=== PATIENT | female | born 2000 | race Caucasian/White ===

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

== ENCOUNTER → 2019-03-27 | Outpatient (CLI) | payer BC | LOC: LAB 13:38 | DX: J30.89 Other allergic rhinitis (principal); L50.8 Other urticaria; Z20.2 Contact with and (suspected) exposure to infections with a predominantly sexual mode of transmission; Z91.14 Patient's other noncompliance with medication regimen ==

== ENCOUNTER 2019-09-06 11:41 | Emergency (ER) | payer OTHER, BC ==
[~2019-09-06] VITALS: Ht 154.9 cm; Wt 72.6 kg
[2019-09-06 12:38] LABS: BASO # 0.1 (0.02-0.10); EOS # 0.4 (0.04-0.40); EOS % 5.5 % (0.1-4.0); HEMATOCRIT 42.8 % (35.0-45.0); HEMOGLOBIN 14.1 g/dL (12.0-15.0); LYMPH# 1.8 (1.20-3.40); MEAN CELL VOLUME 90 fl (78-95); MEAN CORPUSCULAR HEMOGLOBIN 30 pg (26-32); MEAN CORPUSCULAR HGB CONC 33 g/dL (33-37); MEAN PLATELET VOLUME 9.8 fl (7.4-10.4); MONO # 0.8 (0.10-0.60); NEU # 4.7 (1.40-6.50); PLATELET COUNT 332 K/mm3 (130-400); RED BLOOD COUNT 4.78 M/mm3 (4.10-5.30); RED CELL DISTRIBUTION WIDTH 12.5 % (11.5-14.5); WHITE BLOOD COUNT 7.8 K/mm3 (4.8-10.8)
[2019-09-06 12:47] LABS: ALBUMIN 4.3 g/dL (3.5-5.0); POTASSIUM 3.4 mmol/L (3.5-5.1)
[2019-09-06 12:49] LABS: CALCIUM 9.5 mg/dL (8.3-10.5)
[2019-09-06 12:52] LABS: TOTAL BILIRUBIN 0.5 mg/dL (0.2-1.2)
[2019-09-06] MEDS ORDERED: TRAMADOL 50 MG TAB PO (13:58)
[2019-09-06 14:10] VITALS: BP 122/76
[2019-09-06 15:25] LABS: URINE APPEARANCE CLEAR; URINE BILIRUBIN NEGATIVE (NEGATIVE); URINE BLOOD 250 ery/uL (NEGATIVE); URINE COLOR YELLOW; URINE GLUCOSE NEGATIVE (NEGATIVE); URINE KETONE NEGATIVE (NEGATIVE); URINE LEUKOCYTE ESTERASE NEGATIVE (NEGATIVE); URINE NITRATE NEGATIVE (NEGATIVE); URINE PROTEIN(semi-quant) 1+ mg/dL (NEGATIVE); URINE UROBILINOGEN NORMAL (NORMAL); URINE WBC 0-1 /hpf (0-3)
[2019-09-06 15:26] LABS: URINE MUCUS PRESENT (NOT PRESENT)
== END 2019-09-06 14:15 | disposition home or self-care (01) ==
LOC: ED 11:41
PROVIDERS: Family Medicine
DX: S13.4XXA Sprain of ligaments of cervical spine, initial encounter (principal); V49.9XXA Car occupant (driver) (passenger) injured in unspecified traffic accident, initial encounter

== ENCOUNTER → 2020-04-17 | Outpatient (CLI) | payer BC ==
[~2020-04-17] MED LIST changes: +TRAMADOL 50 MG TAB PO
[2020-04-17 08:33] LABS: EOS # 0.4 (0.04-0.40); EOS % 6.7 % (0.1-4.0); HEMATOCRIT 44.9 % (35.0-45.0); HEMOGLOBIN 14.6 g/dL (12.0-15.0); LYMPH# 1.3 (1.20-3.40); MEAN CELL VOLUME 89 fl (78-95); MEAN CORPUSCULAR HEMOGLOBIN 29 pg (26-32); MEAN CORPUSCULAR HGB CONC 33 g/dL (33-37); MEAN PLATELET VOLUME 9.7 fl (7.4-10.4); MONO # 0.6 (0.10-0.60); PLATELET COUNT 266 K/mm3 (130-400); RED BLOOD COUNT 5.02 M/mm3 (4.10-5.30); RED CELL DISTRIBUTION WIDTH 12.4 % (11.5-14.5); WHITE BLOOD COUNT 5.4 K/mm3 (4.8-10.8)
[2020-04-17 08:38] LABS: CALCIUM 8.7 mg/dL (8.3-10.5)
[2020-04-17 08:39] LABS: TOTAL PROTEIN 6.2 g/dL (6.4-8.3)
[2020-04-18 04:50] LABS: FOLLICLE STIMULATING HORMONE 2.3 mIU/mL (()); LUTENIZING HORMONE 3.3 mIU/mL (()); PROLACTIN AMS 12.7 ng/mL (())
== END ==
LOC: LAB 08:02
PROVIDERS: Physician Assistant
DX: N89.0 Mild vaginal dysplasia (principal); N97.9 Female infertility, unspecified; E03.9 Hypothyroidism, unspecified

== ENCOUNTER → 2020-05-27 | Outpatient (CLI) | payer BC | LOC: LAB 05-25 16:07 | DX: J02.9 Acute pharyngitis, unspecified (principal); Z20.828 Contact with and (suspected) exposure to other viral communicable diseases ==

== ENCOUNTER → 2020-08-25 | Outpatient (CLI) | payer MEDICAID | LOC: LAB 15:56 | DX: N91.2 Amenorrhea, unspecified (principal) ==

== ENCOUNTER → 2021-10-29 | Outpatient (CLI) | payer MEDICAID ==
[2021-10-29 16:08] LABS: BASO # 0.08 K/mm3 (0.02-0.10); EOS % 10.9 % (1.0-5.0); HEMATOCRIT 47.8 % (37.0-47.0); HEMOGLOBIN 15.4 g/dL (12.5-16.0); MEAN CELL VOLUME 90 fl (78-100); MEAN CORPUSCULAR HEMOGLOBIN 29 pg (27-31); MEAN CORPUSCULAR HGB CONC 32 g/dL (33-37); MEAN PLATELET VOLUME 9.4 fl (7.4-10.4); MONO # 0.72 K/mm3 (0.20-0.80); NEU # 3.04 K/mm3 (1.40-6.50); PLATELET COUNT 321 K/mm3 (130-400); RED BLOOD COUNT 5.34 M/mm3 (4.10-5.30); RED CELL DISTRIBUTION WIDTH 12.5 % (11.5-14.5); WHITE BLOOD COUNT 7.4 K/mm3 (4.8-10.8)
[2021-10-29 16:11] LABS: ALBUMIN 4.1 g/dL (3.5-5.0)
[2021-10-29 16:13] LABS: CALCIUM 9.3 mg/dL (8.3-10.5)
[2021-10-29 16:14] LABS: TOTAL PROTEIN 6.8 g/dL (6.4-8.3)
== END ==
LOC: LAB 15:56
PROVIDERS: Physician Assistant
DX: S09.90XA Unspecified injury of head, initial encounter (principal); E03.9 Hypothyroidism, unspecified; R07.89 Other chest pain; M54.2 Cervicalgia; M54.6 Pain in thoracic spine; M25.511 Pain in right shoulder; R09.1 Pleurisy; X58.XXXA Exposure to other specified factors, initial encounter

== ENCOUNTER → 2024-02-28 | Outpatient (CLI) | payer SELFPAY | LOC: RAD 16:52 | DX: M79.642 Pain in left hand (principal) ==